=== PATIENT | female | born 1945 | race Caucasian/White ===

== ENCOUNTER → 2020-08-05 | Outpatient (CLI) | payer MEDICARE ==
[~2020-08-05] MED LIST: CATHETER FLUSH 10 ML SYR IV PRN; HOLD METFORMIN - RECEIVED CONTRAST 20 ML VIAL IV SCH; IOHEXOL 350 MG/ML 100 ML (OMNIPAQUE 350) VIAL IV ONE; LVT.025T PO; NS 100 ML (IVPB) BAG IV ONE; OMEG1CAP51 PO; PNT40TEC PO; [UNRECOGNIZED DRUG - CODE] PO
[2020-08-05 07:34] LABS: CALCIUM 9.1 MG/DL (8.5-10.1); CREATININE SERUM 0.97 MG/DL (0.60-1.30); POTASSIUM 4.3 MMOL/L (3.6-5.0)
--- NOTE | 2020-08-05 08:30 | Diagnostic Imaging Report ---
PROCEDURE: US carotid duplex, bilateral. TECHNIQUE: Multiple real-time grayscale images were obtained over the carotid arteries in various projections, bilaterally. Additional spectral analysis and color Doppler duplex images were also obtained. INDICATION: Bruit There are no prior studies available for comparison. There is only mild soft plaque formation in both carotid systems. Flow velocities failed to show any sign of a hemodynamically significant stenosis of the common or internal carotid arteries. Both vertebral arteries were noted and there was antegrade flow bilaterally. IMPRESSION: There is mild atherosclerotic disease involving both carotid systems. There is no evidence for hemodynamically significant stenosis. Parameters based on the consensus panel Nair-Scale and Doppler ultrasound criteria published March 2003, Radiology, Volume 229. DOPPLER (peak systolic velocity M/S Right Left CCA 0.67 0.73 ICA Proximal 0.55 0.64 ICA Mid 0.64 0.66 ICA Distal 0.77 1.25 RATIO 1.14 1.71 ECA 0.78 0.72 VERT 0.45 0.34 Dictated by: Dictated on workstation # [id number]
--- NOTE | 2020-08-05 08:44 | Diagnostic Imaging Report ---
PROCEDURE: CT head with and without contrast. TECHNIQUE: Multiple contiguous axial images were obtained through the brain before and after the administration of intravenous contrast. Auto Exposure Controls were utilized during the CT exam to meet ALARA standards for radiation dose reduction. INDICATION: Headache. Carotid bruit. COMPARISON: None. FINDINGS: The ventricles and cortical sulci are diffusely prominent, compatible with age-related volume loss. Postcontrast images show no abnormal areas of enhancement. There is no midline shift or mass-effect. No acute intra-axial hemorrhage is seen. There are no abnormal areas of increased or decreased density to suggest acute hemorrhage or edema. No extra-axial masses or collections are present. The bony calvarium is intact. The visualized paranasal sinuses are unremarkable. The mastoid air cells are clear. IMPRESSION: 1. No acute intracranial abnormality. No CT evidence of mass, acute infarct or intracranial hemorrhage. Dictated by: Dictated on workstation # [id number]
--- NOTE | 2020-08-05 09:02 | Diagnostic Imaging Report ---
PROCEDURE: CT cervical spine without contrast. TECHNIQUE: Multiple contiguous axial images were obtained through the cervical spine without the use of intravenous contrast. Sagittal and coronal reformations were then performed. Auto Exposure Controls were utilized during the CT exam to meet ALARA standards for radiation dose reduction. INDICATION: Paresthesias of the left neck and head. COMPARISON: None FINDINGS: Evaluation of the static alignment of the cervical spine shows straightening of normal lordotic curvature. This may relate to patient positioning. There is also slight grade 1 anterolisthesis at C4-C5. There is no evidence of jumped facets. Vertebral body heights are maintained. There is no acute fracture. No bony fragments are seen within the spinal canal. There are mild multilevel degenerative changes consisting of mild intervertebral disc height loss. There is also moderate multilevel facet arthropathy, right greater than left. There is no significant osseous spinal canal stenosis. There is multilevel neural foraminal stenosis, greatest at C3-C4 on the right where there is severe neuroforaminal stenosis. There is also significant neuroforaminal stenosis at C4-C5 on the left and C5-C6 on the right. Pre and paravertebral soft tissue structures are unremarkable. Included portions of the lung apices are clear. IMPRESSION: 1. No acute fracture or dislocation of the cervical spine. 2. Multilevel degenerative changes consisting primarily of multilevel facet arthropathy as described above. If further evaluation is indicated, MRI is advised. Dictated by: Dictated on workstation # [id number]
--- NOTE | 2020-08-05 09:24 | Diagnostic Imaging Report ---
PROCEDURE: CT chest with contrast only. TECHNIQUE: Multiple contiguous axial images were obtained through the chest after administration of intravenous contrast. Auto Exposure Controls were utilized during the CT exam to meet ALARA standards for radiation dose reduction. INDICATION: Headache. Carotid bruit. Paresthesias. Palpable area of concern in the left axilla. COMPARISON: 03/13/2011 FINDINGS: Cardiomediastinal structures show normal heart size. There is no large pericardial effusion. Multiple small calcified likely benign right perihilar and peribronchial lymph nodes are noted. No abnormal mediastinal, hilar, or axillary adenopathy is seen. Evaluation of lung oropeza demonstrates multiple micronodular densities within the right middle and lower lobes. Largest of these measures 5 mm and is stable compared to 03/13/2011 (image 78, series 3). These likely correspond with a chronic granulomatous disease as well. Several small micronodules are also seen in the left lower lobe. Reference micronodule measures 4 mm. Not all of the micronodules seen in the left lower lobe can be identified on the prior study, but this may relate to differences in soft tissue versus bony algorithm and slice thickness. No dominant pulmonary parenchymal mass is seen. There is no focal consolidation, large effusion. No pneumothorax. Osseous structures show age-related degenerative changes. Multiple benign-appearing hepatic cysts are seen. IMPRESSION: 1. Several bilateral pulmonary micronodules are identified. The majority of these are stable when compared to 03/13/2011. A few cannot be identified on prior exam, but may relate to differences in technique. Could consider one-year followup to ensure stability. 2. No other acute cardiopulmonary process is identified. Dictated by: Dictated on workstation # [id number]
== END ==
LOC: RAD 08:15
PROVIDERS: ATTEND Family Medicine
DX: I65.23 Occlusion and stenosis of bilateral carotid arteries (principal); M47.812 Spondylosis without myelopathy or radiculopathy, cervical region; M48.02 Spinal stenosis, cervical region; M43.12 Spondylolisthesis, cervical region; R91.8 Other nonspecific abnormal finding of lung field
CPT/HCPCS: 36415; 70470; 71260; 72125; 80048; 93880